=== PATIENT | male | born 1955 | race African-American/Black ===

== ENCOUNTER 2021-08-02 14:37 | Outpatient (CLI) | payer OTHER ==
[2021-08-03 16:34] LABS: SARS-CoV-2 PCR by NAA Not Detected (NotDetected)
== END 2021-08-02 14:38 | disposition home or self-care (01) ==
LOC: CSHLAB 14:37
PROVIDERS: ATTEND Internal Medicine Pulmonary Disease
DX: Z20.822 Contact with and (suspected) exposure to COVID-19 (principal)
CPT/HCPCS: U0003; U0005

== ENCOUNTER 2021-08-06 09:01 | Outpatient (CLI) | payer OTHER | END 2021-08-06 09:02 | disposition home or self-care (01) | LOC: CSHCP 09:01 | PROVIDERS: ATTEND Internal Medicine Pulmonary Disease | DX: R06.00 Dyspnea, unspecified (principal); R94.2 Abnormal results of pulmonary function studies | CPT/HCPCS: 94060; 94726; 94729; 94760 ==

== ENCOUNTER 2021-11-21 11:23 | Emergency (ER) | payer OTHER ==
[2021-11-21] MEDS ORDERED: Lidocaine Viscous Sol 2% 15 ml UD Cup ONE (14:25)
== END 2021-11-21 16:04 | disposition home or self-care (01) ==
LOC: CSHERS 11:23
DX: H60.92 Unspecified otitis externa, left ear (principal); H61.22 Impacted cerumen, left ear; I25.2 Old myocardial infarction; I10 Essential (primary) hypertension; F17.210 Nicotine dependence, cigarettes, uncomplicated
CPT/HCPCS: 69210